=== PATIENT | male | born 1945 | race Caucasian/White ===

== ENCOUNTER → 2016-09-11 14:26 | Outpatient (CLI) | payer MEDICARE ==
[2014-07-05 11:11] VITALS: BMI 23.0
[~2016-09-11 14:26] MED LIST: ASPIRIN325 MG PO; ATIVAN0.5 MG PO; COLACE100 MG PO; CORDARONE200 MG PO; HYDROCODON-ACE1 EAC7 PO; K-DUR20 MEQ PO; LEVAQUIN500 MG PO; LOPRESSOR25 MG PO; MILK OF MAGNESI30 ML PO; PRILOSEC20 MG; PRILOSEC20 MG PO
== END | disposition home or self-care (01) ==
LOC: D.LABREF 14:26
DX: L72.3 Sebaceous cyst (principal)

== ENCOUNTER → 2016-10-26 12:26 | Outpatient (CLI) | payer MEDICARE | END | disposition home or self-care (01) | LOC: D.RAD 12:26 | DX: T17.928A Food in respiratory tract, part unspecified causing other injury, initial encounter (principal) ==

== ENCOUNTER → 2016-11-11 11:40 | Outpatient (CLI) | payer MEDICARE ==
[2014-07-05 11:11] VITALS: BMI 23.0
== END | disposition home or self-care (01) ==
LOC: D.RT 11:40
DX: J44.9 Chronic obstructive pulmonary disease, unspecified (principal)

== ENCOUNTER 2016-11-19 09:56 | Emergency (ER) | payer MEDICARE ==
[2014-07-05 11:11] VITALS: BMI 23.0
[2016-11-19 10:59] LABS: BASOPHILS 0.6 % (0-2); HEMATOCRIT 47.2 % (42.0-54.0); HEMOGLOBIN 15.6 g/dL (13.5-17.5); IMMATURE GRANULOCYTES 0.2 % (0-5); LYMPHOCYTES 27.1 % (15-50); MCH 32.1 pg (26.0-34.0); MCHC 33.1 g/dL (31.0-37.0); MCV 97.1 fL (80.0-100.0); MEAN PLATELET VOLUME 11.2 fL (7.4-10.4); MONOCYTES 10.7 % (2-11); NEUTROPHILS 59.4 % (40-80); RBC 4.86 10x6/uL (4.20-6.10); RDW 14.6 % (11.5-14.5); WBC 8.7 10x3/uL (4.8-10.8)
[2016-11-19 11:06] LABS: PLATELET COUNT 256 10x3/uL (130-400)
[2016-11-19 11:19] LABS: ALBUMIN 3.4 g/dL (3.4-5.0); ALKALINE PHOSPHATASE 79 U/L (46-116); ALT (SGPT) 28 U/L (10-68); BILIRUBIN - TOTAL 0.58 mg/dL (0.2-1.3); CALC OSMOLALITY 283 mosm/kg (275-300); CALCIUM 8.6 mg/dL (8.5-10.1); CARBON DIOXIDE 27.3 mmol/L (21.0-32.0); CHLORIDE - SERUM 106 mmol/L (98-107); CREATININE - SERUM 1.6 mg/dL (0.6-1.3); GLUCOSE 125 mg/dL (74-106); POTASSIUM - SERUM 3.8 mmol/L (3.5-5.1); PROTEIN - SERUM 7.4 g/dL (6.4-8.2); SODIUM 141 mmol/L (136-145); UREA NITROGEN 18 mg/dL (7-18); eGFR NON AFRICAN AMERICAN 45 mL/min (90-120)
[2016-11-19 11:26] LABS: THYROID STIMULATING HORMONE 4.41 uIU/mL (0.36-3.74)
[2016-11-19 11:28] LABS: TROPONIN-I < 0.017 ng/mL (0.000-0.060)
== END 2016-11-19 12:43 | disposition home or self-care (01) ==
LOC: D.ER 09:56
PROVIDERS: Physician Assistant
DX: I48.92 Unspecified atrial flutter (principal); J44.9 Chronic obstructive pulmonary disease, unspecified; I25.10 Atherosclerotic heart disease of native coronary artery without angina pectoris; N18.9 Chronic kidney disease, unspecified

== ENCOUNTER → 2017-02-23 08:09 | Outpatient (CLI) | payer MEDICARE ==
[2014-07-05 11:11] VITALS: BMI 23.0
== END | disposition home or self-care (01) ==
LOC: D.RAD 08:00
DX: J44.9 Chronic obstructive pulmonary disease, unspecified (principal)

== ENCOUNTER → 2017-11-04 09:09 | Outpatient (CLI) | payer MEDICARE ==
[2014-07-05 11:11] VITALS: BMI 23.0
== END | disposition home or self-care (01) ==
LOC: D.RT 09:09
DX: J44.9 Chronic obstructive pulmonary disease, unspecified (principal)

== ENCOUNTER 2018-03-04 05:40 | Day surgery (SDC) | payer MEDICARE ==
[2018-03-02 09:09] LABS: BASOPHILS 0.6 % (0-2); EOSINOPHILS 0 % (0-7); HEMATOCRIT 48.3 % (42.0-54.0); HEMOGLOBIN 16.4 g/dL (13.5-17.5); IMMATURE GRANULOCYTES 0.4 % (0-5); LYMPHOCYTES 27.5 % (15-50); MCH 32.5 pg (26.0-34.0); MCV 95.8 fL (80.0-100.0); MEAN PLATELET VOLUME 11.2 fL (7.4-10.4); MONOCYTES 11.3 % (2-11); NEUTROPHILS 60.2 % (40-80); RBC 5.04 10x6/uL (4.20-6.10); RDW 14.5 % (11.5-14.5); WBC 8.2 10x3/uL (4.8-10.8)
[2018-03-02 09:20] LABS: ANION GAP 9.5 mmol/L (8-16); CALCIUM 8.6 mg/dL (8.5-10.1); CREATININE - SERUM 1.4 mg/dL (0.6-1.3); POTASSIUM - SERUM 4.5 mmol/L (3.5-5.1)
[2018-03-02 09:35] LABS: PLATELET COUNT 199 10x3/uL (130-400)
[~2018-03-04] VITALS: Ht 180.3 cm; Wt 77.3 kg
--- NOTE | ~2018-03-04 | OP ---
PATIENT NAME: DIANNA MENJIVAR MEDICAL RECORD: [id number] :43 LOCATION:[facility] ADMISSION DATE: SURGEON: KEITH HERNADEZ MD DATE OF OPERATION: 03/04/2018 PREOPERATIVE DIAGNOSES: 1. Right inguinal hernia. 2. Chronic obstructive pulmonary disease. 3. Coronary artery disease. 4. Gastroesophageal reflux disease. 5. Atrial fibrillation. POSTOPERATIVE DIAGNOSES: 1. Right inguinal hernia. 2. Chronic obstructive pulmonary disease. 3. Coronary artery disease. 4. Gastroesophageal reflux disease. 5. Atrial fibrillation. PROCEDURE: Right inguinal hernia repair with medium PHS mesh. SURGEON: Keith Hernadez MD REPORT OF PROCEDURE: The patient's right groin was prepped and draped in sterile fashion. An oblique incision was made above the inguinal ligament. Electrocautery was used to dissect through the subcutaneous tissues to the external oblique fascia. This fascia was opened up to the external ring using electrocautery. The ilioinguinal nerve was found and high ligated. We then dissected out the spermatic cord and placed a Drexel around it. The patient had an indirect hernia defect, which was small. This hernia sac was dissected from the spermatic cord and pushed back into the peritoneal cavity. The inguinal floor was then opened up and the preperitoneal space of Retzius was opened up in all directions. There was a lot of adhesions present from a previous radical prostatectomy, but we were eventually able to free this area up completely. A medium PHS mesh was then inserted and sutured down on all 4 sides using multiple interrupted 0 Vicryls. The wound was then irrigated out with normal saline and care was taken to assure there was no sign of any bleeding. The external oblique fascia was closed with running 2-0 Vicryl, Lynn's was closed with interrupted 3-0 Vicryl and the skin was closed with running subcutaneous 5-0 Monocryl. A 10 mL of 0.25% Marcaine with epinephrine was infused into the surrounding tissues and the wound was dressed appropriately. COMPLICATIONS: None. CONDITION: Stable. ANESTHESIA: General endotracheal and local. BLOOD LOSS: Minimal. TRANSINT:[id number] Voice Confirmation ID: [id number] DOCUMENT ID: [id number] OPERATIVE REPORT [id number] OTTODIANNA LARSON KEITH BROOKS MD at 1110 CC: TONNY DOS SANTOS [phone] DICTATION DATE: 03/04/18 0903 RN TRANSITIONAL CARE: 03/04/18 1039 [facility] [place] 03/04/18 [facility] [address] [place] [address]
[~2018-03-04 05:40] MED LIST changes: +BETAPACE 80 MG80 MG PO; -LOPRESSOR25 MG PO; +METOPROLOL TART25 MG PO; +OMEPRAZOLE20 M1 PO; +PRAVACHOL20 MG PO; +SINGULAIR10 MG PO
[2018-03-04 07:06] VITALS: BP 151/78; Ht 180.3 cm; Wt 77.3 kg
[2018-03-04] MEDS ORDERED: HYDROCODONE-APA1 TAB PO (09:03)
== END 2018-03-04 13:50 | disposition home or self-care (01) ==
LOC: D.OPS 05:40 → D.PAN 08:00 → D.OPS 08:00
PROVIDERS: Surgery
DX: K40.90 Unilateral inguinal hernia, without obstruction or gangrene, not specified as recurrent (principal); J44.9 Chronic obstructive pulmonary disease, unspecified; I25.10 Atherosclerotic heart disease of native coronary artery without angina pectoris; K21.9 Gastro-esophageal reflux disease without esophagitis; I48.91 Unspecified atrial fibrillation; Z01.812 Encounter for preprocedural laboratory examination

== ENCOUNTER → 2019-03-22 13:31 | Outpatient (CLI) | payer MEDICARE ==
[2018-03-04 07:06] VITALS: BMI 23.7
[~2019-03-22 13:31] MED LIST changes: +HYDROCODONE-APA1 TAB PO
== END | disposition home or self-care (01) ==
LOC: D.HCCARDIO 13:31
PROVIDERS: ATTEND Internal Medicine Cardiovascular Disease
DX: I34.0 Nonrheumatic mitral (valve) insufficiency (principal)

== ENCOUNTER → 2020-04-09 10:20 | Outpatient (CLI) | payer MEDICARE ==
[2018-03-04 07:06] VITALS: BMI 23.7
== END | disposition home or self-care (01) ==
LOC: D.HCCECHO 10:20
PROVIDERS: ATTEND Internal Medicine Cardiovascular Disease
DX: I25.10 Atherosclerotic heart disease of native coronary artery without angina pectoris (principal)